=== PATIENT | female | born 1985 | race African-American/Black ===

== ENCOUNTER 2021-12-18 15:29 | Emergency (ER) | payer OTHER ==
[2021-12-18 15:41] VITALS: TEMP 98.4; BMI 37.2
[2021-12-18] MEDS ORDERED: FAMOTIDINE 20 MG/50 ML IVPB 20 MG/50 ML MG IVPB ONE ×2 (16:47→17:37)
[2021-12-18] MEDS ORDERED: MAG HYDROX/AL HYDROX/SIMETH 30 ML UNIT-DOSE CUP PO ONE (16:47)
[2021-12-18] MEDS ORDERED: SODIUM CHLORIDE 500 ML IV STA (16:49)
[2021-12-18] MEDS ORDERED: MAG HYDROX/AL HYDROX/SIMETH 30 ML UNIT-DOSE CUP ONE (17:36)
[2021-12-18 18:18] LABS: BASO % 0.3 % (0-2.0); HEMATOCRIT 41.1 % (32.4-45.2); HEMOGLOBIN 13.9 GM/dL (10.7-15.3); LYMPH % 8.1 % (8-40); MCH 28.1 pg (25.7-33.7); MCHC 33.7 g/dl (32.0-36.0); MEAN CELL VOLUME 83.4 fl (80-96); MEAN PLT VOLUME 7.8 fl (7.5-11.1); MONO % 3.2 % (3.8-10.2); NEUT % 88.4 % (42.8-82.8); PLATELET COUNT 265 10^3/uL (134-434); RBC 4.93 M/mm3 (3.60-5.2); RDW 13.5 % (11.6-15.6); WHITE BLOOD COUNT 10.4 K/mm3 (4.0-10.0)
[2021-12-18 18:38] LABS: BLOOD UREA NITROGEN 6.6 mg/dL (7-18); CALCIUM 10.2 mg/dL (8.5-10.1)
[2021-12-18 18:39] LABS: ALBUMIN 4.1 g/dl (3.4-5.0)
[2021-12-18 18:41] LABS: CREATININE 0.7 mg/dL (0.55-1.3)
[2021-12-18 18:43] LABS: BILIRUBIN,TOTAL 1.7 mg/dL (0.2-1); TOT PROT 7.8 g/dl (6.4-8.2)
[2021-12-18 19:15] LABS: PH,URINE 8.5 (5.0-8.0); URINE APPEARANCE CLEAR; URINE BILIRUBIN NEGATIVE (NEGATIVE); URINE COLOR YELLOW; URINE GLUCOSE (UA) NEGATIVE (NEGATIVE); URINE KETONE NEGATIVE (NEGATIVE); URINE LEUK ESTERASE NEGATIVE (NEGATIVE); URINE NITRITE NEGATIVE (NEGATIVE); URINE PROTEIN NEGATIVE (NEGATIVE)
[2021-12-18 19:17] LABS: HCG,QUALITATIVE URINE Negative
[2021-12-18] MEDS ORDERED: ACETAMINOPHEN 1000 MG/100 ML BAG IVPB ONE (19:25)
[2021-12-18] MEDS ORDERED: ACETAMINOPHEN INJECTION 100 ML IVPB ONE (19:28)
[2021-12-18] MEDS ORDERED: PIPERACILLIN/TAZOB 3.375 GM 3.375 GM in DEXTROSE 5%-WATER - 50 ML IVPB ONE (20:40)
[2021-12-18] MEDS ORDERED: KETOROLAC TROMETHAMINE 30 MG/1 ML VIAL IM ONE (20:50)
[2021-12-18] MEDS ORDERED: PIPERACILLIN/TAZOB 3.375 GM 3.375 GM/50 ML BAG IVPB ONE (20:58)
[2021-12-18] MEDS ORDERED: KETOROLAC TROMETHAMINE 30 MG/1 ML VIAL ONE (20:58)
[2021-12-18] MEDS ORDERED: SODIUM CHLORIDE 1,000 ML IV SCH (21:30)
[2021-12-18 22:16] VITALS: BP 122/74; PULSE 80
== END 2021-12-18 22:20 | disposition short-term general hospital (02) ==
LOC: JER 15:29
PROC: 3E023GC Introduction of Other Therapeutic Substance into Muscle, Percutaneous Approach (ICD-10-PCS; principal; 2021-12-18)
PROC: 3E033GC Introduction of Other Therapeutic Substance into Peripheral Vein, Percutaneous Approach (ICD-10-PCS; principal; 2021-12-18)
DX: K80.50 Calculus of bile duct without cholangitis or cholecystitis without obstruction (principal)
CPT/HCPCS: 36415; 76705-TC; 80053; 81003; 83690; 84703; 85025; 96361; 96365; 96372; 96375; 99285-25